=== PATIENT | male | born 1940 | race Caucasian/White ===

== ENCOUNTER → 2018-01-05 | Outpatient (CLI) | payer OTHER ==
[2018-01-05 12:16] LABS: HEMATOCRIT 44.6 % (42.0-52.0); HEMOGLOBIN 15.4 g/dl (13.5-17.5); MEAN CORPUSCULAR HEMOGLOBIN 31.3 pg (27.0-33.0); MEAN CORPUSCULAR HGB CONC 34.5 g/dl (32.0-36.5); MEAN CORPUSCULAR VOLUME 90.7 fl (80.0-96.0); PLATELET COUNT, AUTOMATED 207 10^3/uL (150-450); RED BLOOD COUNT 4.92 10^6/uL (4.30-6.10); RED CELL DISTRIBUTION WIDTH 13.8 % (11.5-14.5); WHITE BLOOD COUNT 7.8 10^3/uL (4.0-10.0)
[2018-01-05 12:31] LABS: INR 0.95; PROTHROMBIN TIME 12.8 SECONDS (12.1-14.4)
[2018-01-05 12:39] LABS: ALBUMIN 3.7 GM/DL (3.2-5.2); ALKALINE PHOSPHATASE 92 U/L (45-117); ALT/SGPT 27 U/L (12-78); ANION GAP 8 MEQ/L (8-16); AST/SGOT 21 U/L (7-37); BILIRUBIN,TOTAL 0.7 MG/DL (0.2-1.0); BLOOD UREA NITROGEN 19 MG/DL (7-18); CALCIUM LEVEL 9.1 MG/DL (8.8-10.2); CARBON DIOXIDE LEVEL 29 MEQ/L (21-32); CHLORIDE LEVEL 102 MEQ/L (98-107); CREATININE FOR GFR 1.79 MG/DL (0.70-1.30); GLOMERULAR FILTRATION RATE 39.6 (>42); GLUCOSE, FASTING 116 MG/DL (70-100); POTASSIUM SERUM 3.3 MEQ/L (3.5-5.1); SODIUM LEVEL 139 MEQ/L (136-145); TOTAL PROTEIN 7.4 GM/DL (6.4-8.2)
[2018-01-05 12:57] LABS: ERYTHROCYTE SEDIMENTATION RATE 5 mm/hr (0-20)
== END ==
LOC: M LAB 11:35
DX: Z01.818 Encounter for other preprocedural examination (principal); M17.11 Unilateral primary osteoarthritis, right knee; M51.34 Other intervertebral disc degeneration, thoracic region; M19.012 Primary osteoarthritis, left shoulder; I70.0 Atherosclerosis of aorta; Z79.899 Other long term (current) drug therapy
CPT/HCPCS: 71046

== ENCOUNTER 2018-01-26 08:35 | Inpatient (IN) | payer OTHER ==
[~2018-01-26 08:35] MED LIST: MIDAZOLAM INJ 2 MG/2 ML VIAL (J2250) As Ordered; fentaNYL 100 MCG/2 ML INJECTION (J3010) As Ordered
[2018-01-26] MEDS ORDERED: ROPIvacaine 0.5% 30 ML INJECTION (J2795 PER 1MG) (08:36)
[2018-01-26] MEDS ORDERED: dexameTHASONE 10 MG/1 ML VIAL PRES.FREE (J1100) (08:36)
[2018-01-26] MEDS: LR 1,000 ML IV ×2 (08:45→15:08)
[2018-01-26] MEDS ORDERED: BUPIVACAINE/EPIN 0.25% 30 ML VIAL As Ordered (09:43)
[2018-01-26] MEDS ORDERED: MIDAZOLAM INJ 2 MG/2 ML VIAL (J2250) As Ordered (10:04)
[2018-01-26] MEDS ORDERED: fentaNYL 100 MCG/2 ML INJECTION (J3010) As Ordered (10:04)
[2018-01-26] MEDS: fentaNYL 100 MCG/2 ML INJECTION (J3010) IV (10:29)
[2018-01-26] MEDS: MIDAZOLAM INJ 2 MG/2 ML VIAL (J2250) IV (10:29)
[2018-01-26] MEDS: ceFAZolin 1GM INJ (J0690 PER 500MG) As Ordered (12:06)
[2018-01-26] MEDS ORDERED: ePHEDrine SULFATE 25 MG/5 ML(5MG/ML) SYRINGE As Ordered (12:08)
[2018-01-26] MEDS ORDERED: PROPOFOL 200 MG/20 ML VIAL As Ordered (12:08)
[2018-01-26] MEDS ORDERED: ONDANSETRON 4MG/2ML VIAL (J2405) As Ordered (12:08)
[2018-01-26] MEDS ORDERED: BUPIVACAINE/DEXTROSE 0.75% 2 ML AMP As Ordered (12:08)
[2018-01-26] MEDS: BUPIVACAINE LIPOSOME/PF 1.3% 20 ML VIAL (13.3MG/ML)(EXPAREL) As Ordered (13:08)
[2018-01-26] MEDS: EPINEPHrine INJ 1 MG/ML 1ML AMP As Ordered (13:16)
[2018-01-26] MEDS: TRANEXAMIC ACID 100 MG/ML 10ML VIAL As Ordered (13:16)
[2018-01-26] MEDS ORDERED: ONDANSETRON 4MG/2ML VIAL (J2405) IV (14:30)
[2018-01-26] MEDS ORDERED: fentaNYL 100 MCG/2 ML INJECTION (J3010) IV (14:30)
[2018-01-26] MEDS ORDERED: PERCOCET 5MG/325MG TAB PO ×2 (14:30→14:45)
[2018-01-26] MEDS ORDERED: ACETAMINOPHEN TAB 650MG DOSE (2X325MG) PO ×2 (14:45)
[2018-01-26] MEDS ORDERED: FLEET ENEMA PR (14:45)
[2018-01-26] MEDS ORDERED: HYDROMORPHONE HCL 0.5 MG/ 0.5 ML SYRINGE (J1170 PER 1) IV ×2 (14:45)
[2018-01-26] MEDS ORDERED: PROMETHAZINE INJ 25 MG/ML VIAL (J2550) IV (14:45)
[2018-01-26] MEDS ORDERED: CYCLOBENZAPRINE 10 MG TAB PO (14:45)
[2018-01-26] MEDS ORDERED: NORTRIPTYLINE 10 MG CAP PO (14:45)
[2018-01-26] MEDS: CelecoXIB (CeleBREX) 100 MG CAP PO (15:07)
[2018-01-26] MEDS: PERCOCET 5MG/325MG TAB PO ×2 (15:07→17:47)
[2018-01-26] MEDS: PREGABALIN 75 MG CAP(LYRICA) PO (15:07)
[2018-01-26] MEDS: ceFAZolin SOD 1 GM in D5W MINI-BAG PLUS 50 ML IV (21:06)
[2018-01-26] MEDS: HYDROCORTISONE 5MG TABLET PO (21:07)
[2018-01-27] MEDS: ceFAZolin SOD 1 GM in D5W MINI-BAG PLUS 50 ML IV (04:34)
[2018-01-27] MEDS: LEVOTHYROXINE 150MCG TABLET (0.15MG) PO (05:32)
[2018-01-27] MEDS: PERCOCET 5MG/325MG TAB PO ×4 (05:36→20:46)
[2018-01-27 06:56] LABS: HEMATOCRIT 39.8 % (42.0-52.0); HEMOGLOBIN 13.3 g/dl (13.5-17.5); MEAN CORPUSCULAR HEMOGLOBIN 30.8 pg (27.0-33.0); MEAN CORPUSCULAR HGB CONC 33.4 g/dl (32.0-36.5); MEAN CORPUSCULAR VOLUME 92.1 fl (80.0-96.0); PLATELET COUNT, AUTOMATED 181 10^3/uL (150-450); RED BLOOD COUNT 4.32 10^6/uL (4.30-6.10); RED CELL DISTRIBUTION WIDTH 13.4 % (11.5-14.5); WHITE BLOOD COUNT 15.4 10^3/uL (4.0-10.0)
[2018-01-27 07:13] LABS: ANION GAP 8 MEQ/L (8-16); BLOOD UREA NITROGEN 22 MG/DL (7-18); CALCIUM LEVEL 8.3 MG/DL (8.8-10.2); CARBON DIOXIDE LEVEL 31 MEQ/L (21-32); CHLORIDE LEVEL 100 MEQ/L (98-107); GLOMERULAR FILTRATION RATE 39.4 (>42); GLUCOSE, FASTING 118 MG/DL (70-100); POTASSIUM SERUM 3.8 MEQ/L (3.5-5.1); SODIUM LEVEL 139 MEQ/L (136-145)
[2018-01-27] MEDS: METAMUCIL (PSYLLIUM) PACKET PO (08:29)
[2018-01-27] MEDS: POTASSIUM CHLORIDE 10 MEQ SR TABLET PO (08:29)
[2018-01-27] MEDS: ATORVASTATIN 10 MG TAB PO (08:35)
[2018-01-27] MEDS: METOPROLOL SUCC (TopROL XL) 100MG *XL* TAB PO (08:35)
[2018-01-27] MEDS: HYDROCORTISONE 10 MG TAB PO (08:35)
[2018-01-27] MEDS: RIVAROXABAN 10 MG TAB (XARELTO) PO (18:00)
[2018-01-27] MEDS: HYDROCORTISONE 5MG TABLET PO (20:45)
[2018-01-28] MEDS: PERCOCET 5MG/325MG TAB PO ×2 (01:49→08:57)
[2018-01-28] MEDS: LEVOTHYROXINE 150MCG TABLET (0.15MG) PO (05:46)
[2018-01-28 06:20] LABS: HEMATOCRIT 38.1 % (42.0-52.0); HEMOGLOBIN 12.6 g/dl (13.5-17.5); MEAN CORPUSCULAR HEMOGLOBIN 30.6 pg (27.0-33.0); MEAN CORPUSCULAR HGB CONC 33.1 g/dl (32.0-36.5); MEAN CORPUSCULAR VOLUME 92.5 fl (80.0-96.0); PLATELET COUNT, AUTOMATED 172 10^3/uL (150-450); RED BLOOD COUNT 4.12 10^6/uL (4.30-6.10); RED CELL DISTRIBUTION WIDTH 13.7 % (11.5-14.5); WHITE BLOOD COUNT 10.9 10^3/uL (4.0-10.0)
[2018-01-28 06:39] LABS: ANION GAP 7 MEQ/L (8-16); BLOOD UREA NITROGEN 26 MG/DL (7-18); CALCIUM LEVEL 8.2 MG/DL (8.8-10.2); CARBON DIOXIDE LEVEL 31 MEQ/L (21-32); CHLORIDE LEVEL 103 MEQ/L (98-107); CREATININE FOR GFR 1.64 MG/DL (0.70-1.30); GLOMERULAR FILTRATION RATE 43.8 (>42); GLUCOSE, FASTING 90 MG/DL (70-100); POTASSIUM SERUM 3.4 MEQ/L (3.5-5.1); SODIUM LEVEL 141 MEQ/L (136-145)
[2018-01-28] MEDS: POTASSIUM CHLORIDE 10 MEQ SR TABLET PO (08:57)
[2018-01-28] MEDS: HYDROCORTISONE 10 MG TAB PO (08:57)
[2018-01-28] MEDS: METAMUCIL (PSYLLIUM) PACKET PO (08:57)
[2018-01-28] MEDS: ATORVASTATIN 10 MG TAB PO (08:57)
[2018-01-28] MEDS: METOPROLOL SUCC (TopROL XL) 100MG *XL* TAB PO (08:59)
== END 2018-01-28 12:25 | disposition home or self-care (01) | DRG 470 ==
LOC: M SDC 08:35 → M MS5PR 14:56
PROC: 0SRC0J9 Replacement of Right Knee Joint with Synthetic Substitute, Cemented, Open Approach (ICD-10-PCS; principal; 2018-01-26 11:00)
DX: M17.11 Unilateral primary osteoarthritis, right knee (principal); E23.0 Hypopituitarism; I12.9 Hypertensive chronic kidney disease with stage 1 through stage 4 chronic kidney disease, or unspecified chronic kidney disease; E78.5 Hyperlipidemia, unspecified; E03.9 Hypothyroidism, unspecified; G47.33 Obstructive sleep apnea (adult) (pediatric); N18.9 Chronic kidney disease, unspecified; N52.9 Male erectile dysfunction, unspecified; Z79.899 Other long term (current) drug therapy; Z87.891 Personal history of nicotine dependence

== ENCOUNTER → 2018-08-23 | Outpatient (CLI) | payer MEDICARE ==
[~2018-08-23] MED LIST changes: +AMLO2.5T3 PO; +ASPI1CHW2 PO; +ATOR1TAB19 PO; +FISH7.5C PO; +GLUCTAB6 PO; +HYDR-3713 PO; +HYDR5TAB59 PO; +LEVO150T7 PO; +LOSA100T5 PO; +METO200T28 PO; -MIDAZOLAM INJ 2 MG/2 ML VIAL (J2250) As Ordered; +PEPC10TA6 PO; +PERC5TAB12 PO; +POTA10TA17 PO; +TEST1GEL6 TD; +VITA10006 PO; +VITA50005 PO; +VITACRE10 EX; +XARE10TA PO; +[UNRECOGNIZED DRUG - CODE] PO; -fentaNYL 100 MCG/2 ML INJECTION (J3010) As Ordered
[2018-08-23 13:26] LABS: HEMATOCRIT 46.6 % (42.0-52.0); HEMOGLOBIN 15.7 g/dl (13.5-17.5); MEAN CORPUSCULAR HEMOGLOBIN 30.6 pg (27.0-33.0); MEAN CORPUSCULAR HGB CONC 33.7 g/dl (32.0-36.5); MEAN CORPUSCULAR VOLUME 90.8 fl (80.0-96.0); PLATELET COUNT, AUTOMATED 181 10^3/uL (150-450); RED BLOOD COUNT 5.13 10^6/uL (4.30-6.10); WHITE BLOOD COUNT 7.7 10^3/uL (4.0-10.0)
[2018-08-23 13:58] LABS: INR 0.96; PROTHROMBIN TIME 12.9 SECONDS (12.1-14.4)
[2018-08-23 14:00] LABS: ALBUMIN 3.9 GM/DL (3.2-5.2); CALCIUM LEVEL 9.1 MG/DL (8.8-10.2); CREATININE FOR GFR 1.64 MG/DL (0.70-1.30); GLOMERULAR FILTRATION RATE 43.7 (>42); POTASSIUM SERUM 3.2 MEQ/L (3.5-5.1); TOTAL PROTEIN 7.5 GM/DL (6.4-8.2)
[2018-08-23 14:18] LABS: ERYTHROCYTE SEDIMENTATION RATE 2 mm/hr (0-20)
--- NOTE | 2018-08-23 14:18 | REP ---
Clinical: Preoperative assessment . Comparison: 01/05/2018 . Technique: PA and lateral. Findings: The mediastinum and cardiac silhouette are normal. Tortuous thoracic aorta again noted. The lung wang are clear and without acute consolidation, effusion, or pneumothorax. The skeletal structures are intact and normal. Impression: 1. No acute cardiopulmonary process. Electronically Signed by Ilia Patel MD 08/23/2018 02:09 P
--- NOTE | 2018-08-23 19:35 | ECGEPIP ---
Stationary ECG Study [facility] Test Date: 2018-08-23 Pat Name: PAUL CORREA Department: Room: - Gender: M Dry Room Attendant: [place] : 1940 Requested By: Popeye Rendon Order Number: [id number] Reading MD: Alonzo Dowling Measurements Intervals [place] Rate: 64 P: 19 CO: 186 QRS: 46 QRSD: 112 T: 81 QT: 447 QTc: 463 Interpretive Statements SINUS RHYTHM WITH SINUS ARRHYTHMIA MODERATE INTRAVENTRICULAR CONDUCTION DELAY NONSPECIFIC ST & T-WAVE ABNORMALITY MINIMAL CHANGE SINCE 01/05/18 Electronically Signed On 08-23-2018 19:34:44 EDT by Alonzo Dowling
== END ==
LOC: M EKG 12:14
PROVIDERS: ATTEND Orthopaedic Surgery
DX: Z01.818 Encounter for other preprocedural examination (principal); M25.562 Pain in left knee; E29.1 Testicular hypofunction; E03.9 Hypothyroidism, unspecified; I10 Essential (primary) hypertension

== ENCOUNTER → 2018-08-23 | Outpatient (CLI) | payer MEDICARE ==
[2018-08-23 13:48] LABS: MALB URINE SIEMENS 24.7 MG/L; MAU/CREAT RATIO 24.2 MCG/MG (0.0-30.0)
[2018-08-23 14:03] LABS: CALCIUM LEVEL 9.2 MG/DL (8.8-10.2); CREATININE FOR GFR 1.63 MG/DL (0.70-1.30); FREE T4 1.01 NG/DL (0.76-1.46); POTASSIUM SERUM 3.7 MEQ/L (3.5-5.1); TOTAL PROTEIN 7.3 GM/DL (6.4-8.2); TOTAL T3 94.2 NG/DL (60.0-181.0)
== END ==
LOC: M LAB 12:21
PROVIDERS: ATTEND Family Medicine
DX: E29.1 Testicular hypofunction (principal); E03.9 Hypothyroidism, unspecified; I10 Essential (primary) hypertension

== ENCOUNTER 2018-09-17 08:35 | Inpatient (IN) | payer MEDICARE ==
--- NOTE | 2018-09-07 15:55 | HPE ---
DATE OF ADMISSION: 09/17/2018 ATTENDING PHYSICIAN: Dr. Popeye Van CHIEF COMPLAINT: Left knee pain and stiffness. HISTORY: This is a pleasant 78-year-old male patient with progressively worsening left knee pain and stiffness. He has failed to improve with conservative management. He has elected for surgery for his continued symptoms. He has pain with weightbearing activities and activities of daily living. He has been consented by Dr. Van for a left total knee arthroplasty. X-rays notable for end-stage degenerative changes of his left knee. CURRENT MEDICATIONS: - losartan/hydrochlorothiazide 100/12.5 mg one tablet once per day - hydrocortisone 5 mg one tablet three times a day - levothyroxine 150 mcg one tablet once per day - atorvastatin 10 mg one tablet once per day - metoprolol extended release 200 mg one tablet once per day - testosterone gel 1% three times a day - amlodipine 2.5 mg one tablet once per day - hydrocodone/acetaminophen 5/325 one tablet twice a day - vitamin D2 1.2 mg once per week - potassium extended release 10 mEq one tablet once per day - vitamin C 1000 mg per day - vitamin E 1000 units per day - glucosamine chondroitin - aspirin 81 mg, he will discontinue that five days prior to surgery - fish oil - famotidine 20 mg one tablet once per day PAST MEDICAL HISTORY: Includes: 1. Hypertension. 2. Elevated lipids. 3. Hypogonadism. 4. Hypopituitarism. 5. Hypothyroidism. 6. Chronic back pain. 7. Symptomatic osteoarthritis in the left knee. 8. Renal insufficiency. 9. Chronic rhinitis. 10. Vitamin D deficiency. PAST SURGICAL HISTORY: 1. Pituitary adenoma with radiation treated at age 23. 2. He has had a right total knee replacement. FAMILY HISTORY: Noncontributory. REVIEW OF SYSTEMS: Denies fever or chills. Denies chest pain, shortness of breath, or cough. Denies difficulty breathing. Denies recent upper respiratory illness (URI) or urinary tract infection (UTI) symptoms. Notes persistent pain in his left knee with weightbearing activities and activities of daily living. PHYSICAL EXAMINATION: Today, reveals an alert, well-nourished, well-developed male patient. He ambulates with a slight limping gait favoring his left side. Examination of the left knee reveals the skin to be intact. No erythema, edema, or ecchymosis. Irritability with knee range of motion. His neck is supple without adenopathy. No jugular venous distention (JVD). Lungs are clear to auscultation without rales or wheeze. Heart: Regular rate and rhythm. Abdomen: Bowel sounds are present. Current vital signs: Height 5 feet, 5 inches. Weight 230 pounds. Temperature 98.6, blood pressure 140/80, pulse 74, respirations 16. LABORATORY DATA: Sedimentation rate of 2. WBC count of 7.7, RBC count of 5.1, hemoglobin of 15.7, hematocrit 46.6. Glucose 83, BUN 15, creatinine 1.65, sodium 139, potassium 3.2. Prothrombin time 12.9, INR 0.96. Chest x-ray shows no acute cardiopulmonary disease process noted. EKG: Sinus arrhythmia. MEDICAL OPTIMIZATION: Dr. Sanchez. IMPRESSION: Symptomatic osteoarthritis of his left knee. PLAN: Consented for a left total knee arthroplasty by Dr. Van.
[~2018-09-17] VITALS: Ht 165.1 cm; Wt 105.9 kg
[~2018-09-17 08:35] MED LIST changes: +CelecoXIB 400 MG CAP PO ONE; +HYDR-4327 PO; -HYDR5TAB59 PO; +LR 1,000 ML IV ONE; +PERCOCET 5MG/325MG TAB PO ONE; +PREGABALIN 50 MG CAP (LYRICA) PO ONE
[2018-09-17] MEDS ORDERED: fentaNYL 100 MCG/2 ML INJECTION (J3010) As Ordered ONE ×2 (09:31→13:27)
[2018-09-17] MEDS ORDERED: MIDAZOLAM INJ 2 MG/2 ML VIAL (J2250) As Ordered ONE ×2 (09:31→13:27)
[2018-09-17] MEDS ORDERED: BUPIVACAINE HCL 0.5% 10 ML VIAL As Ordered ONE (12:44)
[2018-09-17] MEDS ORDERED: TRANEXAMIC ACID 100 MG/ML 10ML VIAL As Ordered ONE (12:44)
[2018-09-17] MEDS ORDERED: BUPIVACAINE/EPIN 0.25% 30 ML VIAL As Ordered ONE (12:44)
[2018-09-17] MEDS ORDERED: BUPIVACAINE LIPOSOME/PF 1.3% 20ML VIAL (13.3MG/ML)(EXPAREL)(C9290 PER1MG) As Ordered ONE (12:45)
[2018-09-17] MEDS ORDERED: fentaNYL 100 MCG/2 ML INJECTION (J3010) IV ONE (12:45)
[2018-09-17] MEDS ORDERED: ceFAZolin 1GM INJ (J0690 PER 500MG) As Ordered ONE (12:45)
[2018-09-17] MEDS ORDERED: MIDAZOLAM INJ 2 MG/2 ML VIAL (J2250) IV ONE (12:45)
[2018-09-17] MEDS ORDERED: EPINEPHrine INJ 1 MG/ML 1ML AMP As Ordered ONE (12:45)
[2018-09-17] MEDS ORDERED: PROPOFOL 200 MG/20 ML VIAL As Ordered ONE ×2 (13:27→15:04)
[2018-09-17] MEDS ORDERED: ePHEDrine SULFATE 25 MG/5 ML(5MG/ML) SYRINGE As Ordered ONE (13:41)
[2018-09-17] MEDS ORDERED: ROPIvacaine 0.5% 30 ML INJECTION (J2795 PER 1MG) ONE (15:51)
[2018-09-17] MEDS ORDERED: dexameTHASONE 10 MG/1 ML VIAL PRES.FREE (J1100) ONE (15:51)
[2018-09-17] MEDS ORDERED: HYDROMORPHONE HCL 0.5 MG/ 0.5 ML SYRINGE (J1170 PER 1) IV PRN ×2 (16:30)
[2018-09-17] MEDS ORDERED: ONDANSETRON 4MG/2ML VIAL (J2405) IV PRN (16:30)
[2018-09-17] MEDS ORDERED: fentaNYL 100 MCG/2 ML INJECTION (J3010) IV PRN (16:30)
[2018-09-17] MEDS ORDERED: PERCOCET 5MG/325MG TAB PO PRN (16:30)
[2018-09-17] MEDS ORDERED: LR 1,000 ML IV SCH (16:30)
--- NOTE | 2018-09-17 16:42 | REP ---
AP lateral left knee two views History: Postop The patient is status post left total knee replacement. There is no acute fracture or dislocation. Subcutaneous air is present in the overlying soft tissue. Impression: The patient is status post left total knee replacement. There is anatomic alignment. Electronically Signed by Carmelo Solo MD 09/17/2018 04:35 P
[2018-09-17] MEDS ORDERED: ACETAMINOPHEN TAB 650MG DOSE (2X325MG) PO PRN (16:45)
[2018-09-17 17:30] VITALS: BP 159/94
[2018-09-17 18:00] VITALS: BP 161/97
[2018-09-17] MEDS ORDERED: HYDROCORTISONE 100 MG/2 ML VIAL (J1720) IV ONE (18:00)
[2018-09-17 19:00] VITALS: BP 157/103
[2018-09-17] MEDS: PERCOCET 5MG/325MG TAB PO PRN (19:02)
[2018-09-17 20:00] VITALS: BP 142/80
--- NOTE | 2018-09-17 20:50 | CR ---
DATE OF CONSULTATION: 09/17/2018 REQUESTING PROVIDER: Dr. Popeye Van CONSULTANTS: Hospitalist group. PRIMARY CARE PROVIDER: Dr. Jas Cruz in [place] REASON FOR CONSULTATION: Medical evaluation. He is postoperative left total knee arthroplasty today. The patient's preoperative evaluation was done by his primary care provider. I reviewed this thorough preoperative consultation. The patient has a history of hypopituitarism and had a pituitary adenoma and treated with radiation therapy at age 23 that left him with some pituitary insufficiency, particularly hypothyroidism and hypogonadism. He has a history of hypertension, hyperlipidemia, chronic low back pain, erectile dysfunction, smoking history but quit over 30 years ago, sleep apnea for which he is on continuous positive airway pressure (CPAP), history of tubular adenoma colon polyps on colonoscopy 07/2010 and 11/2015. He has chronic kidney disease, chronic allergic rhinitis, vitamin D deficiency. MEDICATIONS: - amlodipine 2.5 mg daily - aspirin 81 mg daily - losartan/hydrochlorothiazide 100/12.5 mg daily - hydrocortisone 5 mg twice a day - levothyroxine 150 mcg daily - atorvastatin 10 mg daily - metoprolol ER 200 mg daily - testosterone gel 1% three times a day, which is an unusual dosing regimen - hydrocodone/acetaminophen 5/325 mg twice a day - vitamin D 1.2 mg weekly - potassium chloride 10 mEq daily - vitamin C and vitamin E - glucosamine - famotidine 10 mg daily - fish oil SURGICAL HISTORY: 1. Right total knee. 2. Pituitary adenoma treated with radiation at age 23. FAMILY HISTORY: Says "everybody dies of cancer in my family." Mother with liver cancer, father with throat cancer, grandfather with liver cancer, uncle with colon cancer. Mother had hypertension. REVIEW OF SYSTEMS: No chest pain, shortness of breath, rectal bleeding. PHYSICAL EXAMINATION: Vital signs per flow sheet. GENERAL APPEARANCE: Alert, conversant. No distress. HEENT: Unremarkable. LUNGS: Clear. HEART: Regular rhythm. ABDOMEN: Soft, nontender. No masses. EXTREMITIES: No peripheral edema. LABORATORIES: White count 7.7, hemoglobin 15.7, platelets 181. Sodium 140, potassium 3.7, BUN 16, creatinine 1.6, GFR 44, which is his baseline. Testosterone level was normal and thyroid functions were normal on 08/23/2018. IMPRESSION: 1. Hypopituitarism. On hydrocortisone 5 mg three times a day. I have ordered one dose of IV hydrocortisone 25 mg and then he can resume his previous hydrocortisone dose. 2. Hypothyroidism. Continue current dose of levothyroxine. 3. Hypertension. Continue metoprolol ER 200 mg daily, holding for hypotension or bradycardia. 4. Hypertension. Continue metoprolol ER 200 mg daily. Hold his losartan/hydrochlorothiazide for now. Continue amlodipine 2.5 mg daily. Restart losartan/hydrochlorothiazide depending on his blood pressures the next few days postoperatively. 5. Hyperlipidemia. Continue atorvastatin 10 mg daily. 6. Testosterone deficiency. Hold his testosterone, as it increases thromboembolic risk postoperatively. Can restart this at home.
[2018-09-17 21:00] VITALS: BP 132/80
[2018-09-17] MEDS ORDERED: HYDROCORTISONE 5MG TABLET PO SCH (21:00)
[2018-09-17] MEDS ORDERED: FAMOTIDINE 20 MG TAB PO SCH (21:00)
[2018-09-17 22:00] VITALS: BP 132/90
[2018-09-18 02:00] VITALS: BP 138/76
[2018-09-18 06:00] VITALS: BP 140/78
[2018-09-18] MEDS ORDERED: LEVOTHYROXINE 150MCG TABLET (0.15MG) PO SCH (06:00)
[2018-09-18 06:33] LABS: HEMATOCRIT 37.9 % (42.0-52.0); HEMOGLOBIN 12.8 g/dl (13.5-17.5); MEAN CORPUSCULAR HEMOGLOBIN 30.7 pg (27.0-33.0); MEAN CORPUSCULAR HGB CONC 33.8 g/dl (32.0-36.5); MEAN CORPUSCULAR VOLUME 90.9 fl (80.0-96.0); PLATELET COUNT, AUTOMATED 164 10^3/uL (150-450); RED BLOOD COUNT 4.17 10^6/uL (4.30-6.10); WHITE BLOOD COUNT 17.7 10^3/uL (4.0-10.0)
[2018-09-18 07:02] LABS: CALCIUM LEVEL 8.1 MG/DL (8.8-10.2); CREATININE FOR GFR 1.74 MG/DL (0.70-1.30); GLOMERULAR FILTRATION RATE 40.8 (>42); POTASSIUM SERUM 3.1 MEQ/L (3.5-5.1)
[2018-09-18] MEDS ORDERED: XARE10TA PO (08:49)
[2018-09-18] MEDS ORDERED: PERC5TAB12 PO (08:49)
[2018-09-18] MEDS ORDERED: MIRALAX *UNIT DOSE* 17GM PACKET PO SCH (09:00)
[2018-09-18] MEDS ORDERED: VITAMIN E 400 INTERNATIONAL UNITS CAP PO SCH (09:00)
[2018-09-18] MEDS ORDERED: LOSARTAN 50 MG TAB PO SCH (09:00)
[2018-09-18] MEDS ORDERED: HYDROCORTISONE 5MG TABLET PO SCH (09:00)
[2018-09-18] MEDS ORDERED: TESTOSTERONE TOP SCH (09:00)
[2018-09-18] MEDS ORDERED: ASCORBIC ACID 500 MG TAB PO SCH (09:00)
[2018-09-18] MEDS ORDERED: ATORVASTATIN 10 MG TAB PO SCH (09:00)
[2018-09-18] MEDS ORDERED: METOPROLOL SUCC (TopROL XL) 100MG *XL* TAB PO SCH (09:00)
[2018-09-18] MEDS ORDERED: POTASSIUM CHLORIDE 10 MEQ SR TABLET PO SCH (09:00)
[2018-09-18] MEDS ORDERED: MOM 30ML SUSPENSION UDC PO SCH (09:00)
[2018-09-18] MEDS ORDERED: hydroCHLOROthiazide 25 MG TAB PO SCH (09:00)
[2018-09-18 09:33] VITALS: BP 140/78
[2018-09-18] MEDS: PERCOCET 5MG/325MG TAB PO PRN (09:34)
--- NOTE | 2018-09-18 09:53 | RO ---
DATE OF PROCEDURE: 09/17/2018 PREOPERATIVE DIAGNOSIS: Left knee osteoarthritis. POSTOPERATIVE DIAGNOSIS: Left knee osteoarthritis. PROCEDURE PERFORMED: Left total knee replacement. SURGEON: Popeye Van MD RETAIL SHIFT LEADER: ALKA Farris ANESTHESIA: Spinal with block. ESTIMATED BLOOD LOSS: Less than 100 mL, replaced with crystalloid. TOURNIQUET TIME: Approximately 1 hour. COMPLICATIONS: No complications. COMPONENTS USED: Include DePuy ATTUNE posterior stabilized, size 8 tibial component, size 7 femoral component, size 35 mm patellar button, 7 mm rotating platform, posterior stabilized polyethylene and the appropriate bone cement. INDICATIONS: Progressive discomfort and varus arthritis of the left knee. Consent reviewed in detail including a reid discussion of the pathology involved, procedure proposed, alternatives including doing nothing or cortisone injections and risks including but not limited to pain, failure, incomplete relief, need for more surgery, bleeding, blood loss, blood clots and other complications. The patient agreed to proceed. OPERATIVE COURSE: Identified in the holding area, site/side verified, brought to the operating room once the block was accomplished. Spinal anesthesia was administered. He was positioned for exposure of the left knee for arthroplasty. Once I and the excel expert were comfortable with the patient's positioning, he was sterilely prepped, draped in the usual fashion. The extremity was elevated, the tourniquet was inflated, the incision was outlined with a marking pen. Standard midline parapatellar incision infiltrated with 0.25% Marcaine with epinephrine, made with 10 blade knife developed down through skin and subcuticular tissues. The extensor mechanism was exposed. Medial parapatellar arthrotomy was accomplished and the knee was placed in the flexed position. The infrapatellar fat pad was debrided using the hot knife. Medial release was accomplished using the hot knife and the sharp knife. Supracondylar soft tissue was cleared off of the interior femur. Next, appropriate retractors were placed. The femoral canal opening drill was utilized followed by the distal femoral cutting alignment guide intramedullary, which was installed and pinned into place. I held the retractors. Liza Hemahendra made the distal femoral cut. Next, once this was accomplished the knee was placed in flexed position. Anterior-posterior sizing guide was utilized predicting a size 7 femoral component. The guide was pinned 3 degrees external rotation. Next, the 4-in-1 cutting block was installed, pinned into place. Next, anterior and posterior cuts followed by chamfer cuts were made. Next, appropriate retractors were placed and held by Mr. Gilliam. Tibial alignment jig was placed 4 off the bad side, pinned into place, alignment verified with drop nery, 3 degree slope. Next, the appropriate retractors were placed, oscillating saw was utilized to remove the proximal tibia. Next, curved osteotome was utilized to clear osteophytes in the posterior femoral condyles. The menisci were removed using sharp knife and hot knife. The posterior cruciate was released. Sizing blocks were utilized for a size 7 mm. That fit appropriately in flexion and extension. Next, the notch cutting block was installed, pinned into place, oscillating saw was utilized to make the cuts, and Mr. Gilliam made the proximal cut using the small oscillating blade. Once the notch cut was made, we utilized rasps to further contour the notch. Next, the trial tibial component was pinned into place/base plate. The broach guide was installed. The large tibial drill was utilized sized for a size 8. Next, broach was utilized. Broach was left in place and pins were removed. Femoral trial component was installed, trial polyethylene installed, knee placed through a range of motion, appreciated be stable in flexion and extension. Full extension was achieved. Next, patella was everted, posterior patella cut was made with oscillating saw. Mr. Gilliam secured appropriate retractors. Next, a 35 mm patella template was installed and drilled. Trial patella was installed. Knee was placed through a range of motion. I did release some soft tissue laterally to facilitate better patella alignment. Next, once this was accomplished, all trial components were removed. TXA was instilled in the knee and allowed to sit for 1 minute. Pulse lavage was utilized to prepare the bone surfaces while Mr. Gilliam prepared the bone cement. Next, once with bone cement was prepared and the surfaces were dried, I cemented the tibial component followed by the femoral component, posterior condyle cemented as well. Excess cement cleared with curettes. Non trial polyethylene was installed, and knee was placed extended over a bump. The patella everted, patella was cemented in place, clamp utilized. Next, cement was allowed to harden as we inspected for any excess bone cement which was removed using curettes. Next, TXA was again instilled in the knee. Next, Exparel injection mixed with plain 0.25% Marcaine and saline solution was instilled using a 22 gauge spinal needle. This had also been placed in the posterior capsule prior to placement of polyethylene. Next, once this was accomplished and in the cement had hardened appropriately, the arthrotomy was closed with interrupted and running STRATAFIX stitch. The deep dermis was reapproximated with interrupted stitch. Prineo dressing applied. Tourniquet was deflated. Next, the patient was moved to the recovery room in good condition. Mr. Gilliam was present and participated in the entire case as delinquent tax collector assistant.
[2018-09-18] MEDS ORDERED: RIVAROXABAN 10 MG TAB (XARELTO) PO SCH (18:00)
--- NOTE | 2018-09-18 21:54 | IPNPDOC ---
Date Seen The patient was seen on 09/18/18. Progress Note SUBJECTIVE: Patient planned for discharge today by surgery. Denies of any acute complaint. OBJECTIVE PHYSICAL EXAMINATION: VITAL SIGNS: Please see below GENERAL APPEARANCE: Resting comfortably HEENT: Normocephalic, PERRLA, Mucous moist, CARDIOVASCULAR: S1,S2, pulse present, regularly, regular, no obvious murmur LUNGS: Equal air entry b/l, no wheezes or crackle ABDOMEN: Soft, BS present, no tenderness, no guarding GENITOURINARY: No Mcdermott EXTREMITIES: B/L no edema, capillary refill present SKIN: Warm, No fever NEUROLOGICAL: Cranial nerves grossly intact PSYCHIATRIC: Normal mood and affect for current situation LABORATORY DATA, IMAGING STUDIES, MICROBIOLOGY: Please see below. ASSESSMENT AND PLAN: 78-year-old man called for Medical evaluation. He is postoperative left total knee arthroplasty today. The patient's preoperative evaluation was done by his primary care provider. I reviewed this thorough preoperative consultation. The patient has a history of hypopituitarism and had a pituitary adenoma and treated with radiation therapy at age 23 that left him with some pituitary insufficiency, particularly hypothyroidism and hypogonadism. He has a history of hypertension, h yperlipidemia, chronic low back pain, erectile dysfunction, smoking history but quit over 30 years ago, sleep apnea for which he is on continuous positive airway pressure (CPAP), history of tubular adenoma colon polyps on colonoscopy 07/2010 and 11/2015. He has chronic kidney disease, chronic allergic rhinitis, vitamin D deficiency. 1. Hypopituitarism. On hydrocortisone 5 mg three times a day. I have ordered one dose of IV hydrocortisone 25 mg and then he can resume his previous hydrocortisone dose. 2. Hypothyroidism. Continue current dose of levothyroxine. 3. Hypertension. Continue metoprolol ER 200 mg daily, holding for hypotension or bradycardia. 4. Hypertension. Continue metoprolol ER 200 mg daily. Hold his losartan/hydrochlorothiazide for now. Continue amlodipine 2.5 mg daily. Restart losartan/hydrochlorothiazide depending on his blood pressures the next few days postoperatively. 5. Hyperlipidemia. Continue atorvastatin 10 mg daily. 6. Testosterone deficiency. Hold his testosterone, as it increases thromboembolic risk postoperatively. Can restart this at home. DISPOSITION: [home as per sx]. VS, I&O, 24H, Fishbone Vital Signs/I&O Vital Signs Date Time Temp Pulse Resp B/P (MAP) Pulse Ox O2 Delivery O2 Flow Rate FiO2 09/18/18 10:04 16 09/18/18 09:33 70 140/78 09/18/18 06:00 97.6 95 09/17/18 16:10 2 I&O- Last 24 Hours up to 6 AM 09/18/18 06:00 Intake Total 3445 ml Output Total 1250 ml Balance 2195 ml Laboratory Data 24H LABS Laboratory Tests 2 09/18/18 06:07: Nucleated Red Blood Cells % (auto) 0.0, Anion Gap 9, Glomerular Filtration Rate 40.8L, Blood Urea Nitrogen 22H, Creatinine 1.74H, Sodium Level 139, Potassium Level 3.1L, Chloride Level 102, Carbon Dioxide Level 28, Calcium Level 8.1L CBC/BMP Laboratory Tests 09/18/18 06:07 Red Blood Count 4.17 L, Mean Corpuscular Volume 90.9, Mean Corpuscular Hemoglobin 30.7, Mean Corpuscular Hemoglobin Concent 33.8, Red Cell Distribution Width 13.3, Calcium Level 8.1 L DEBORAH WHEATLEY MD Sep 18, 2018 21:54
== END 2018-09-18 13:15 | disposition home health service (06) | DRG 470 ==
LOC: M OR 08:35 → M MS5PR 17:26
PROVIDERS: ADMIT Orthopaedic Surgery; ATTEND Orthopaedic Surgery
PROC: 0SRD0J9 Replacement of Left Knee Joint with Synthetic Substitute, Cemented, Open Approach (ICD-10-PCS; principal; 2018-09-17 10:40)
DX: M17.12 Unilateral primary osteoarthritis, left knee (principal); E89.3 Postprocedural hypopituitarism; I12.9 Hypertensive chronic kidney disease with stage 1 through stage 4 chronic kidney disease, or unspecified chronic kidney disease; E78.5 Hyperlipidemia, unspecified; E29.1 Testicular hypofunction; E03.9 Hypothyroidism, unspecified; G47.30 Sleep apnea, unspecified; N18.9 Chronic kidney disease, unspecified; N52.9 Male erectile dysfunction, unspecified; M54.9 Dorsalgia, unspecified; E55.9 Vitamin D deficiency, unspecified; J31.0 Chronic rhinitis; Z96.651 Presence of right artificial knee joint; Z79.82 Long term (current) use of aspirin; Z79.899 Other long term (current) drug therapy; Z87.891 Personal history of nicotine dependence